=== PATIENT | male | born 1955 | race Two or more races ===

== ENCOUNTER 2020-04-08 10:02 | Inpatient (IN) | payer MEDICAID ==
[~2020-04-08] VITALS: Ht 175.3 cm; Wt 111.1 kg
--- NOTE | 2020-04-08 10:02 | NUR ---
PT BIB SELF C/O CHEST PRESSURE FOR 2 DAYS AND PALPITAITONS. PT IS AAOX4, NOT IN RESPIRATORY DISTRESS, HOOKED TO NURSE RESEARCHER, KEPT RESTED AND COMFORTABLE. WILL CONTINUE TO MONITOR.
--- NOTE | 2020-04-08 10:12 | NUR ---
SEEN AND EXAMINED BY DR. ELIAS.
[2020-04-08 10:33] LABS: HEMOGLOBIN 15.1 g/dL (13.5-17.5)
[2020-04-08 10:37] LABS: BASOPHILS # (AUTO) 0.1 /CMM (0.0-0.2); BASOPHILS % (AUTO) 0.9 % (0.0-2.0); EOSINOPHILS % (AUTO) 2.1 % (0.0-6.0); HEMATOCRIT 43 % (39-51); LYMPHOCYTES # (AUTO) 1.9 /CMM (0.8-4.8); LYMPHOCYTES % (AUTO) 30.3 % (20.0-44.0); MEAN CORPUSCULAR HGB CONC 35 g/dl (31.0-36.0); MEAN CORPUSCULAR VOLUME 87 fL (80-96); MONOCYTES # (AUTO) 0.5 /CMM (0.1-1.30); MONOCYTES % (AUTO) 8.5 % (2.0-12.0); NEUTROPHILS # (AUTO) 3.6 /CMM (1.8-8.9); NEUTROPHILS % (AUTO) 58.2 % (43.0-81.0); PLATELET COUNT (AUTO) 170 /CMM (150-450); WHITE BLOOD COUNT (AUTO) 6.3 K/uL (4.3-11.0)
[2020-04-08 10:41] LABS: CALCIUM, SERUM 8.8 mg/dL (8.5-10.1); CARBON DIOXIDE 28 mmol/L (21-32); CHLORIDE 104 mmol/L (98-107); CREATININE 1.1 mg/dL (0.6-1.3); GLUCOSE 86 mg/dL (74-106); POTASSIUM 3.7 mmol/L (3.5-5.1); SODIUM SERUM 142 mmol/L (136-145); UREA NITROGEN, BLOOD 14 mg/dL (7-18)
[2020-04-08 10:47] LABS: ALANINE AMINOTRANSFERASE 37 U/L (12-78); ALBUMIN 3.7 g/dL (3.4-5.0); ALKALINE PHOSPHATASE 45 U/L (46-116); ASPARTATE AMINOTRANSFERASE 24 U/L (15-37); BILIRUBIN,DIRECT 0.1 mg/dL (0.0-0.2); BILIRUBIN,TOTAL 0.5 mg/dL (0.2-1.0); TOTAL PROTEIN, SERUM 7.2 g/dL (6.4-8.2)
[2020-04-08] MEDS ORDERED: NITROGLYCERIN PACKET 1 GM PACKET TD ONE (11:00)
[2020-04-08] MEDS ORDERED: ASPIRIN 81 MG TAB.CHEW PO ONE (11:00)
[2020-04-08] MEDS ORDERED: NITROGLYCERIN PACKET 1 GM PACKET ONE (11:04)
[2020-04-08] MEDS ORDERED: ASPIRIN 81 MG TAB.CHEW ONE (11:05)
[2020-04-08] MEDS ORDERED: METO-357 PO (11:15)
[2020-04-08] MEDS ORDERED: AMLO-212 PO (11:15)
[2020-04-08] MEDS ORDERED: ATOR40TA PO (11:15)
--- NOTE | 2020-04-08 11:50 | NUR ---
KALLI DNP AT BEDSIDE FOR EVAL.
[2020-04-08] MEDS ORDERED: LORAZEPAM INJ 2 MG/ML VIAL IV PRN (12:00)
[2020-04-08] MEDS ORDERED: Z GUARD REMEDY 2 OZ OINT TP PRN (12:00)
[2020-04-08] MEDS ORDERED: MAGNESIUM HYDROXIDE 30 ML UDC PO PRN (12:00)
[2020-04-08] MEDS ORDERED: MORPHINE SULFATE INJ 2 MG/ML DISP.SYRIN IV PRN (12:00)
[2020-04-08] MEDS ORDERED: ONDANSETRON HCL/PF 4 MG/2 ML VIAL IVP PRN (12:00)
[2020-04-08] MEDS ORDERED: ACETAMINOPHEN 325 MG TABLET PO PRN (12:00)
[2020-04-08] MEDS ORDERED: TEMAZEPAM 15 MG CAPSULE PO PRN (12:00)
[2020-04-08] MEDS ORDERED: MAG HYDROX/AL HYDROX/SIMETH 30 ML UDC PO PRN (12:00)
[2020-04-08] MEDS ORDERED: PANTOPRAZOLE 40 MG VIAL IV SCH (12:00)
[2020-04-08] MEDS ORDERED: ENOXAPARIN SODIUM 40 MG/0.4 ML DISP.SYRIN SQ SCH (12:00)
--- NOTE | 2020-04-08 12:04 | NUR ---
RECEIVED RESULT FROM MAIN LAB: RAPID COVID NEGATIVE
--- NOTE | 2020-04-08 12:05 | NUR ---
REPORT GIVEN TO SHERI BALLARD.
--- NOTE | 2020-04-08 12:21 | NUR ---
PATIENT ALERT AND ORIENETD X4. IN ROOM AIR AND DENIES SOB. RESPIRATION REGULAR AND UNLABORED. DENIES PAIN. THE PATIENT IS IN NO APPARENT DISTESS. PATIENT IS TRANSFERED TO [facility] FLOOR ROOM 326-2 VIA ACLS PROTOCOL. PATIENT`S RN IS CHAO.
[2020-04-08] MEDS ORDERED: IODIXANOL 0 ML IV ONE (12:49)
[2020-04-08] MEDS ORDERED: LIDOCAINE HCL/MPF 1% 30 ML VIAL IJ ONE (12:49)
[2020-04-08] MEDS ORDERED: VERAPAMIL HCL IV 5 MG/2 ML VIAL ONE (12:49)
[2020-04-08] MEDS ORDERED: IV NS 0.9% 1,000 ML ONE (12:50)
[2020-04-08] MEDS ORDERED: HEPARIN SODIUM, PORCINE 1,000 UNIT/ML VIAL ONE (12:50)
[2020-04-08] MEDS ORDERED: NITROGLYCERIN ICAR 1,000 MCG/10 ML VIAL ICAR ONE (12:50)
--- NOTE | 2020-04-08 13:20 | NUR ---
PT WAS BROUGHT TO CARDIAC MEDICAL SURGERY NURSE WITH STABLE V/S
[2020-04-08] MEDS ORDERED: FENTANYL PF 100MCG/2ML AMPUL ONE (13:21)
[2020-04-08] MEDS ORDERED: MIDAZOLAM HCL 2 MG/2ML VIAL ONE (13:21)
--- NOTE | 2020-04-08 14:40 | NUR ---
PT CAME BACK FROM RECORDS CLERK WITH STABLE V/S. BP 110/66 HR 62 RR 16 T 97.6 O2 SAT 100%. DENIES ANY PAIN OR DISTRESS.
[2020-04-08 15:10] VITALS: BP 132/77
--- NOTE | 2020-04-08 15:10 | NUR ---
BUTCHER ALL ROUND NOTE O2 SAT 92% ON RIGHT INDEX FINGER OF ACCESS SITE. 3ML AIR REMOVED FROM TR BAND WITH NO BLEEDING AT THE SITE. PATENT HEMOSTASIS. BP 119/68. HR 53. WILL CONTINUE TO MONITOR.
--- NOTE | 2020-04-08 15:30 | NUR ---
CREPING MACHINE OPERATOR NOTE O2 SAT 94% ON RIGHT INDEX FINGER OF ACCESS SITE. 3ML AIR REMOVED FROM TR BAND WITH NO BLEEDING AT THE SITE. PATENT HEMOSTASIS. WILL CONTINUE TO MONITOR.
--- NOTE | 2020-04-08 15:45 | NUR ---
ACCOUNT EXECUTIVE TRAINEE NOTE O2 SAT 92-93% ROOM AIR ON RIGHT INDEX FINGER OF ACCESS SITE. 3ML AIR REMOVED FROM TR BAND WITH NO BLEEDING AT THE SITE. PATENT HEMOSTASIS. HR 61.WILL CONTINUE TO MONITOR.
[2020-04-08 16:00] VITALS: BP 117/67
--- NOTE | 2020-04-08 16:00 | NUR ---
DORMITORY COUNSELOR NOTE O2 SAT 94% ROOM AIR ON RIGHT INDEX FINGER OF ACCESS SITE. 4ML AIR REMOVED FROM TR BAND WITH NO BLEEDING AT THE SITE. PATENT HEMOSTASIS. HR 63. TR BAND FULLY DEFLATED AND REMOVED. PT IS STABLE. WILL CONTINUE TO MONITOR.
--- NOTE | 2020-04-08 18:26 | NUR ---
PROPERTY MANAGEMENT SUPERVISOR DISCHARGE NOTE PT DISCHARGED. ACCOMPANIED BY SONMIKE. PT STABLE, A/O X4. AWARE AND ALERT. DENIES PAIN OR DISTRESS. PT GIVEN ALL DISCHARGE PAPERWORK, EDUCATIONAL MATERIALS, AND ALL BELONGINGS. IV AND WRISTBAND REMOVED. TAKEN DOWN TO LOBBY IN WHEELCHAIR BY HAND BOOKED FOLDER AND STITCHER.
[2020-04-09] MEDS ORDERED: ASPIRIN 81 MG TAB.CHEW PO SCH (09:00)
== END 2020-04-08 18:23 | disposition home or self-care (01) | DRG 191 ==
LOC: ER 10:09 → TELE 12:18
PROVIDERS: ADMIT Nurse Practitioner Acute Care; ATTEND Nurse Practitioner Acute Care
PROC: 4A023N7 Measurement of Cardiac Sampling and Pressure, Left Heart, Percutaneous Approach (ICD-10-PCS; principal; 2020-04-08)
PROC: B211YZZ Fluoroscopy of Multiple Coronary Arteries using Other Contrast (ICD-10-PCS; 2020-04-08)
DX: I25.110 Atherosclerotic heart disease of native coronary artery with unstable angina pectoris (principal); E78.5 Hyperlipidemia, unspecified; I10 Essential (primary) hypertension; E66.9 Obesity, unspecified; Z68.34 Body mass index [BMI] 34.0-34.9, adult; F17.200 Nicotine dependence, unspecified, uncomplicated
CPT/HCPCS: 36415; 71045-TC; 80048-TC; 80076-TC; 84484-TC; 85025-TC; 85730-TC; 87081-TC; C1887; C9113; C9803; G0378; G0500; J1644; J2250; J3010; J3490; Q9967